=== PATIENT | male | born 1980 | race Two or more races ===

== ENCOUNTER 2018-06-25 19:43 | Emergency (ER) | payer OTHER ==
[~2018-06-25] VITALS: Ht 175.3 cm; Wt 72.6 kg
[2018-06-25 20:08] VITALS: BP 132/75
[2018-06-25] MEDS ORDERED: Acetaminophen 500mg (ES) tab ORAL ONE (20:15)
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
[2018-06-25] MEDS ORDERED: IBUPROFEN600 MG ORAL (21:31)
[2018-06-25] MEDS ORDERED: BACITRACIN-P28.35 GM TP (21:31)
[2018-06-25 22:16] VITALS: BP 115/75
--- NOTE | 2018-06-26 11:39 | Diagnostic Imaging Report ---
Indication: Headache Technique: Contiguous 5 mm thick transaxial imaging of the head obtained in a Siemens Sensation [address] scanner. Soft tissue and bone windows generated. Automatic Exposure Control was utilized. Total Dose length Product (DLP): [address] Dose Index Volume (CTDIvol): 70.38 mGy Comparison: none Findings: The size and configuration of the cortical sulci, basal cisterns, and ventricles are within normal limits for age. There is no mass effect, midline shift, or edema identified. There is no evidence of acute hemorrhage or abnormal intra-axial or extra-axial fluid collections. The bones and soft tissues are unremarkable. Impression: No mass effect, edema or acute bleed. [facility] has communicated the preliminary results to the Emergency Department. Their findings are largely concordant with this report. The CT scanner at [facility] is accredited by the [employer] and the scans are performed using dose optimization techniques as appropriate to a performed exam including Automatic Exposure control.
== END 2018-06-25 21:43 | disposition home or self-care (01) ==
LOC: EDBD 19:43 → EMR 20:11
DX: S00.83XA Contusion of other part of head, initial encounter (principal); S80.02XA Contusion of left knee, initial encounter; S80.01XA Contusion of right knee, initial encounter; S80.11XA Contusion of right lower leg, initial encounter; S50.02XA Contusion of left elbow, initial encounter; S50.01XA Contusion of right elbow, initial encounter; R51 Headache; Y04.2XXA Assault by strike against or bumped into by another person, initial encounter; Y92.9 Unspecified place or not applicable; S00.511A Abrasion of lip, initial encounter; S80.212A Abrasion, left knee, initial encounter; S80.211A Abrasion, right knee, initial encounter
CPT/HCPCS: 70450; 99284